=== PATIENT | female | born 1995 | race Caucasian/White ===

== ENCOUNTER 2016-11-23 17:06 | Emergency (ER) | payer SELFPAY ==
[2016-11-23 18:26] VITALS: BP 129/68
--- NOTE | 2016-11-23 19:08 | UC ---
UC Dental HPI - HPI Summary HPI Summary: 21 yo female with toothache worsening x 3 weeks now unable to sleep well due to pain jaw feels swollen no f/c - History of Current Complaint Chief Complaint: UCGeneralIllness Stated Complaint: DENTAL PAIN Time Seen by Provider: 11/23/16 18:59 Hx Last Menstrual Period: 11/18/16 Onset/Duration: Gradual Onset, Lasting Weeks Severity: Severe Pain Intensity: 7 Pain Scale Used: 0-10 Numeric Aggravating: Heat, Cold, Chewing Alleviating: OTC Meds - helped initially - Allergies/Home Medications Allergies/Adverse Reactions: Allergies Allergy/AdvReac Type Severity Reaction Status Date / Time Penicillins Allergy Hives Verified 07/03/15 18:29 PMH/Surg Hx/FS Hx/Imm Hx Previously Healthy: Yes - Surgical History Surgical History: None - Family History Known Family History: Negative: Cardiac Disease, Hypertension, Diabetes - Social History Alcohol Use: Rare Substance Use Type: None Smoking Status (MU): Former Smoker When Did the Patient Quit Smoking/Using Tobacco: 05/2016 Review of Systems Constitutional: Negative Skin: Negative Eyes: Negative ENT: Dental Pain Respiratory: Negative Cardiovascular: Negative Gastrointestinal: Negative Genitourinary: Negative Motor: Negative Neurovascular: Negative Musculoskeletal: Negative Neurological: Negative Psychological: Negative All Other Systems Reviewed And Are Negative: Yes Physical Exam Triage Information Reviewed: Yes Appearance: Well-Appearing, No Pain Distress, Well-Nourished Vital Signs: Initial Vital Signs Temp 98.4 F 11/23/16 18:21 Pulse 84 11/23/16 18:21 Resp 16 11/23/16 18:21 BP 129/68 11/23/16 18:21 Pulse Ox 100 11/23/16 18:21 Vital Signs Reviewed: Yes Eyes: Positive: Conjunctiva Clear ENT: Positive: Hearing grossly normal, TMs normal. Negative: Nasal congestion, Nasal drainage, Tonsillar swelling, Tonsillar exudate, Trismus Dental: Positive: Gross Decay/Caries @ - abysmal dentition/many carious teeth. Negative: Cellulitis @, Cervical Lymphadenopathy, Bleeding Neck: Positive: Supple, Nontender, No Lymphadenopathy Respiratory: Positive: Lungs clear, Normal breath sounds, No respiratory distress Cardiovascular: Positive: RRR, No Murmur. Negative: Tachycardia, Bradycardia Musculoskeletal: Positive: ROM Intact Neurological: Positive: Alert Psychological: Positive: Normal Response To Family, Age Appropriate Behavior Skin Exam: Normal Dental Complaint Course/Dx - Differential Dx/Diagnosis Provider Diagnoses: dentalgia/abscess Discharge - Discharge Plan Condition: Stable Disposition: HOME Prescriptions: Clindamycin Cap(NF) [Cleocin 300 mg Cap(NF)] 300 mg PO QID #28 cap HYDROcodone/ACETAMIN 5-325 MG* [Sarita 5-325 TAB*] 1 tab PO Q4H PRN #10 tab MDD 2 PRN Reason: Pain Patient Education Materials: Dental Abscess (ED) Referrals: No Primary Care Phys,NOPCP [Primary Care Provider] - Additional Instructions: advil 2-3 4x day with food for pain to ER for new or worsening symptoms try to see a dentist this week Images Dental: 1 - abscess
[2016-11-23] MEDS ORDERED: Clindamycin CAP* 150 MG PO ONE (19:17)
== END 2016-11-23 19:34 | disposition home or self-care (01) ==
LOC: UCCORT 17:06
DX: K04.7 Periapical abscess without sinus (principal); Z88.0 Allergy status to penicillin; Z87.891 Personal history of nicotine dependence
CPT/HCPCS: 99212; A9270-GY; G0463

== ENCOUNTER 2017-07-12 16:07 | Emergency (ER) | payer SELFPAY ==
--- NOTE | 2017-07-12 16:48 | UC ---
[facility] Dental HPI - HPI Summary HPI Summary: 1st molar right lower jaw in broken---today developed pain and swelling-- - History of Current Complaint Chief Complaint: UCDentalProblem Stated Complaint: DENTAL COMPLAINT Time Seen by Provider: 07/12/17 16:36 Hx Obtained From: Patient Hx Last Menstrual Period: 06/16/17 ?: No Onset/Duration: Gradual Onset, Worse Since - today Severity: Moderate Pain Intensity: 6 Pain Scale Used: 0-10 Numeric Aggravating Factor(s): Heat, Cold, Chewing Alleviating Factor(s): OTC Meds - motrin Related History: Previous Dental Care on Same Tooth, Swelling - Allergies/Home Medications Allergies/Adverse Reactions: Allergies Allergy/AdvReac Type Severity Reaction Status Date / Time Penicillins Allergy Hives Verified 07/12/17 16:38 Home Medications: Home Medications Ibuprofen TAB* [Advil TAB*] 600 mg PO Q6H PRN 07/12/17 [History Confirmed ] ValACYclovir (*) [Valtrex 1 GM(*)] 1 tab PO BID 07/12/17 [History Confirmed ] PMH/Surg Hx/FS Hx/Imm Hx Previously Healthy: Yes - Surgical History Surgical History: None - Family History Known Family History: Negative: Cardiac Disease, Hypertension, Diabetes - Social History Occupation: Employed Full-time - At [employer] Lives: With Family Alcohol Use: Rare Substance Use Type: None Smoking Status (MU): Light Every Day Tobacco Smoker Type: Cigarettes Amount Used/How Often: 3 ciagrettes daily When Did the Patient Quit Smoking/Using Tobacco: 05/2016 Cessation Counseling: Counseled 3+Min - 10 Min Review of Systems Constitutional: Negative Skin: Negative Eyes: Negative ENT: Dental Pain - right lower jaw pain and swelling Respiratory: Negative Cardiovascular: Negative Gastrointestinal: Negative Genitourinary: Negative Motor: Negative Neurovascular: Negative Musculoskeletal: Negative Neurological: Negative Psychological: Negative Is Patient Immunocompromised?: No All Other Systems Reviewed And Are Negative: Yes Physical Exam Triage Information Reviewed: Yes Appearance: Well-Appearing, No Pain Distress, Well-Nourished Vital Signs: Initial Vital Signs Temp 98.5 F 07/12/17 16:39 Pulse 65 07/12/17 16:39 Resp 16 07/12/17 16:39 BP 130/66 07/12/17 16:39 Pulse Ox 100 07/12/17 16:39 Vital Signs Reviewed: Yes Eye Exam: Normal Eyes: Positive: Conjunctiva Clear ENT Exam: Normal ENT: Positive: Normal ENT inspection, Hearing grossly normal, Pharynx normal, TMs normal. Negative: Nasal congestion, Nasal drainage, Trismus, Muffled/ hoarse voice Dental Exam: Normal Neck exam: Normal Neck: Positive: Supple, Nontender Respiratory Exam: Normal Respiratory: Positive: Chest non-tender, Lungs clear, Normal breath sounds, No respiratory distress, No accessory muscle use Cardiovascular Exam: Normal Cardiovascular: Positive: RRR, No Murmur, Pulses Normal, Brisk Capillary Refill Musculoskeletal Exam: Normal Musculoskeletal: Positive: Strength Intact, ROM Intact Neurological Exam: Normal Neurological: Positive: Alert, Muscle Tone Normal Psychological Exam: Normal Psychological: Positive: Normal Response To Family, Age Appropriate Behavior Skin Exam: Normal Skin: Positive: rashes Dental Complaint Course/Dx - Course Course Of Treatment: Clindamycin, ibuprofen, anbesol, follow with dentist this week - Differential Dx/Diagnosis Provider Diagnoses: dental abscess Discharge - Discharge Plan Condition: Stable Disposition: HOME Prescriptions: Clindamycin Cap(NF) [Clindamycin Cap 300 mg Cap(NF)] 300 mg PO Q6H #40 cap Patient Education Materials: How to Stop Smoking (ED), Dental Abscess (ED), Toothache (ED) Referrals: [facility] [Outside] - If Needed Additional Instructions: Follow with dentist this week!
[2017-07-12 16:56] VITALS: BP 130/66
== END 2017-07-12 16:59 | disposition home or self-care (01) ==
LOC: UCCORT 16:07
DX: K04.7 Periapical abscess without sinus (principal); F17.210 Nicotine dependence, cigarettes, uncomplicated; Z88.0 Allergy status to penicillin
CPT/HCPCS: 99212; G0463

== ENCOUNTER 2019-06-23 11:30 | Emergency (ER) | payer SELFPAY ==
[2019-06-23 11:51] VITALS: BP 139/71
--- NOTE | 2019-06-23 12:40 | UC ---
Respiratory Complaint HPI - HPI Summary HPI Summary: Patient is a 24-year-old female here with URI symptoms. Patient's had 2 days of nasal congestion and headache. Patient's had no fever, chills, ear pain, sore throat, vomiting, diarrhea. In addition, patient's had 4 days of feeling like her eyes go across to return if she looks down. Patient has no dizziness, syncope with these episodes. Patient has no change in vision, numbness, Ara , weakness, difficulty ambulating. Patient [place] symptoms like this before. Medications reviewed - History of Current Complaint Chief Complaint: UCRespiratory Stated Complaint: SINUSES Time Seen by Provider: 06/23/19 12:14 Hx Last Menstrual Period: 05/24/19 Pain Intensity: 5 - Allergies/Home Medications Allergies/Adverse Reactions: Allergies Allergy/AdvReac Type Severity Reaction Status Date / Time Penicillins Allergy Hives Verified 06/23/19 11:45 PMH/Surg Hx/FS Hx/Imm Hx Previously Healthy: Yes - Surgical History Surgical History: None - Family History Known Family History: Positive: Non-Contributory Negative: Cardiac Disease, Hypertension, Diabetes - Social History Alcohol Use: Rare Substance Use Type: None Smoking Status (MU): Smoker, Current Status Unknown Type: eCigarettes, Smokeless Tobacco Amount Used/How Often: vapes daily When Did the Patient Quit Smoking/Using Tobacco: 05/2016 Review of Systems All Other Systems Reviewed And Are Negative: Yes Constitutional: Negative: Fever, Chills Skin: Negative: Bruising Eyes: Negative: Blurred Vision, Diplopia, Drainage, Eye Redness, Photophobia ENT: Positive: Nasal Discharge, Sinus Congestion. Negative: Dental Pain, Sore Throat, Ear Ache Respiratory: Negative: Shortness Of Breath, Cough Cardiovascular: Negative: Chest Pain Gastrointestinal: Negative: Abdominal Pain, Vomiting, Diarrhea Genitourinary: Negative: Dysuria, Hematuria Physical Exam - Summary Physical Exam Summary: Vital Signs Reviewed: Yes A+Ox3, no distress Eyes: Conjunctiva Clear, PERRL. EOM intact and full ENT: Hearing grossly normal TM x 2 clear, moist, uvula midline, no exudate, no erythema Neck: Positive: Supple Respiratory: Positive: No respiratory distress, No accessory muscle use + CTA throughout no w/r Cardiovascular: RRR nl s1, s2 no m/r CBT <2 sec abd soft + BS nt/nd no guarding, no distension Musculoskeletal Exam: RASCON x 4 without difficulty Strength Intact, ROM Intact Neurological: Positive: Alert, + sensation throughout. Cranial wnerves 2 through 12 intact. 5 out of 5 strength in all extremities. Finger to nose intact. Normal gait. Psychological: Positive: Normal Response To Family Skin: no rash, no ecchymosis Vital Signs: Initial Vital Signs Temp 98.6 F 06/23/19 11:46 Pulse 79 06/23/19 11:46 Resp 16 06/23/19 11:46 BP 139/71 06/23/19 11:46 Pulse Ox 99 06/23/19 11:46 Respiratory Course/Dx - Course Course Of Treatment: Patient is here with symptoms consistent with a viral URI. Patient's overall well-appearing and has a normal neurologic exam. Patient's symptoms of feeling cross eyed when she looks down could be a form of vertigo so she was trialed on meclizine. Patient was given a primary care referral for establishing a primary care doctor. - Differential Dx/Diagnosis Provider Diagnosis: Congestion of nasal sinus Discharge ED - Sign-Out/Discharge Documenting (check all that apply): Patient Departure All imaging exams completed and their final reports reviewed: No Studies - Discharge Plan Condition: Stable Disposition: HOME Prescriptions: Meclizine TAB* [Antivert 12.5 TAB*] 25 mg PO TID PRN #20 tab PRN Reason: Vertigo Patient Education Materials: Vertigo (ED), Viral Syndrome (ED) Referrals: [facility] [Outside] No Primary Care Phys,NOPCP [Primary Care Provider] - Additional Instructions: Please continue using ibuprofen for your headache Please try the vertigo medicine for your eye symptoms Please go straight to the emergency department if you have difficulty speaking, weakness in the arms or legs, numbness or tingling - Billing Disposition and Condition Condition: STABLE Disposition: Home
== END 2019-06-23 12:46 | disposition home or self-care (01) ==
LOC: UCCORT 11:30
DX: R09.81 Nasal congestion (principal); Z88.0 Allergy status to penicillin; F17.290 Nicotine dependence, other tobacco product, uncomplicated
CPT/HCPCS: 99212; G0463